=== PATIENT | female | born 1965 | race Caucasian/White ===

== ENCOUNTER 2025-06-21 07:53 | Outpatient (OUT) | payer BC, SELFPAY ==
--- OUTSIDE RECORDS SUMMARY | 2025-06-21 07:55 | XMS_ITS | Clinical Summary ---
Author Organization [facility] Address [address] [place] [id number] Care Team Providers [facility] Assistant Name Role Phone Funmilayo Thomas MD Unavailable [phone] Ashley Tomlinson Primary Care Provider Unavailabl e Allergies No known active allergies Medications MedicationSigDispense QuantityRefillsLast FilledStart DateEnd DateStatus nitroglycerin sublingual (NITROQUICK) 0.4 mg SL tablet Dissolve 0.4 mg under the tongue every 5 minutes as needed.Active metFORMIN (GLUCOPHAGE) 500 mg tablet Take 500 mg by mouth daily with breakfast.Active aspirin, enteric coated (ASPIRIN, ENTERIC COATED) 81 mg EC tablet Take 81 mg by mouth once daily.Active atorvastatin (LIPITOR) 80 mg tablet Take 80 mg by mouth once daily.Active MAGNESIUM ORAL Take by mouth once daily.Active furosemide (LASIX) 20 mg tablet Take 1 tablet by mouth twice daily. 180 tablet 3Active valsartan (DIOVAN) 80 mg tablet Take 1 tablet by mouth two times a day. 180 tablet 5Active metoprolol tartrate, short acting, (LOPRESSOR) 25 mg tablet TAKE 1 TABLET BY MOUTH TWICE A DAY 180 tablet 5Active clopidogrel (PLAVIX) 75 mg tablet Take 1 tablet by mouth once daily. 90 tablet 5Active clopidogrel (PLAVIX) 75 mg tablet Take 1 tablet by mouth once daily. 90 tablet Discontinued Active Problems ProblemNoted DateDiagnosed DateMixed hptjelyfwbeswp04/14/2022Essential dacdhrcnwfcl93/14/2022oronary artery disease involving beaver coronary artery of beaver heart without angina fziubazp81/14/2022Ischemic cardiomyopathy 2S/P drug eluting coronary stent antkthoej75/14/2022 Encounters DateTypeDepartmentCare RbncTktecfbxcvn74/28/2025Refill Cardiology [address] [place], [place] [phone] Funmilayo Thomas MD Refill Soofxau9905/14/2025Refill Cardiology [address] [place], [place] [phone] Funmilayo Thomas MD Refill Requestfrom Last 3 Months Family History Medical HistoryRelationCommentsAtrial fibrillationFatherCoronary Artery Disease FfqfxpHVOSn3Dknwv diseasePaternal AuntCoronary Artery DiseasePaternal GrandfatherCABGRelationStatusCommentsFatherPaternal AuntAlivePaternal Grandfather Social History Tobacco UseTypesPacks/DayYears UsedDateSmoking Tobacco: NeverSmokeless Tobacco: Never Tobacco Cessation:Counseling Given: Not Answered Alcohol UseStandard Drinks/WeekCommentsNot Currently0 (1 standard drink = 0.6 oz pure alcohol)Area Deprivation IndexAnswerDate RecordedNational Score (1-100), lower number is lower rjwi115501/30/2023State Score (1-10), lower number is lower aikc1893Data from: https://www.neighborhoodatlas.[facility].edu/. Last address [facility] lkmzehtnxjq[address] [facility]/30/2023CommentsNoSex and Gender InformationValueDate RecordedSex Assigned at BirthNot on fileLegal Sex Ntsugk7907/25/2021 1:41 PM ESTGender IdentityNot on fileSexual OrientationNot on file Last Filed Vital Signs Vital SignReadingTime TakenCommentsBlood Gybvgzfy804/6608 12:26 PM EDT Sbowq3968 12:26 PM SJMDymayangvpq60.1 ??C (97 ??F)12/17/2023 2:01 PM EDT Respiratory Hgxd8612 9:00 PM EDTOxygen Guihpwahtg48%12/17/2023 11:00 PM EDTInhaled Oxygen Concentration--Acpmmk94.4 kg (206 lb)02/10/2025 12:26 PM EDT Pficrk506.6 cm (5' 6 )02/10/2025 12:26 PM EDTBody Mass Index33.25002/10/2025 12:26 PM EDT Plan of Treatment DateTypeDepartmentCare Team (Latest Contact Info)Qfnrarniwdl48/09/2026 10:00 AM ESTProcedure Cardiology [address] [place] [address] S/P drug eluting coronary stent revucfeom27/09/2026 10:30 AM ESTResults [facility] [address] [place] [id number] LAB WORK08/16/2025 11:00 AM ESTOffice Visit Cardiology [address] [place] [address] S/P drug eluting coronary stent refbipwdc78/09/2026 12:15 PM ESTOffice Visit Cardiology [address] [place] [address] Funmilayo Thomas MD [address] [place] [address] S/P drug eluting coronary stent placementHealth MaintenanceDue DateLast Done CommentsAnnual PCP Team Chronic Disease Visit1984Anxiety Screening 1984Depression Ehlyxqhhk45/10/1985HIV Mxyeemuqm86/10/1985Hepatitis C Lnktlzkwu43/10/1985DTaP,Tdap,Td Vaccine (1 - Tdap)1985Hepatitis B Vaccine (1 of 3 - 19+ 3-dose series)1985CT Fsrmxumlfeax44/10/2012Cologuard (FIT-DNA)07/17/20114300Xnwmtgybszd28/10/2012Colorectal Cancer Cmsarfmvn46/10/2012 Fecal Occult Blood07/17/20116249Ynlxilutmzbng64/10/2012Pneumococcal Vaccine: 50+ (1 of 1 - PCV)2016Shingrix Vaccine (1 of 2)2016Cervical Cancer Kzwllqrux30/, 09/16/2020Mammogram Hteazurxm71/11/2024 03/18/2023, 03/18/2023, 10/06/2020ovid-19 Vaccine ( season) /07/2021, 01/04/2022, 06/14/2021, Additional history existsInfluenza Vaccine (#1)/07/2022, 05/01/2022, 04/16/2020, Additional history existsLDL Fxzblpjntpt16/21/202604/, 04/20/2024, 11/11/2023, Additional history existsDiabetes Orfagoekt40/09/641026/03/2025, 12/14/2024, 10/26/2024, Additional history existsLipid Cepwojdne94/, 04/20/2024, 11/11/2023, Additional history existsRSV Vaccine (1 - 1-dose 75+ series) 2041 Goals GoalPatient Goal TypeAssociated ProblemsRecent ProgressPatient-Stated?Author Blood Pressure < 130/80 Blood Rymudeju452/66(02/10/2025 12:26 PM EDT)Caren Rivero Procedures Procedure NamePriorityDate/TimeAssociated DiagnosisCommentsBASIC METABOLIC PANEL STAT12/17/2023 2:07 PM EDT LIPID PANEL, DKXQOQPKiviiaf87/06/2024 2:16 PM EDT S/P drug eluting coronary stent placement S/P carotid endarterectomy Atherosclerosis of beaver artery of other extremity with intermittent claudication (HCC) Controlled type 2 diabetes mellitus without complication, without long-term current use of insulin (HCC) Essential hypertension Ischemic cardiomyopathy from Last 3 Months or Most Recently Relevant to Health Maintenance Results * (ABNORMAL) BASIC METABOLIC PANEL (12/17/2023 2:07 PM EDT)ComponentValueRef RangeTest MethodAnalysis TimePerformed AtPathologist TnbultqhqYwovwja978(H)74 - 99 mg/dL12/17/2023 2:43 PM [facility] LABComment: The [place] Diabetes Association (ADA) provides guidance for cutoff values for fasting glucose andrandom glucose. The ADA defines fasting as no caloric intake for at least 8 hours. Fasting plasma glucose results between 100 to 125 mg/dL indicate increased risk for diabetes (prediabetes). Fasting plasma glucose results greater than or equal to 126 mg/dL meet the criteria for diagnosis of diabetes. In the absence of unequivocal hyperglycemia, results should be confirmed by repeat testing. In a patient with classic symptoms of hyperglycemia or hyperglycemic crisis, random plasma glucose results greater than or equal to 200 mg/dL meet the criteria for diagnosis of diabetes. Reference: Standards of Medical Care in Diabetes 2016, [place] Diabetes Association. Diabetes Care. 2016.39(Suppl 1). ADS773 - 21 mg/dL12/17/2023 2:43 PM [facility] Creatinine0.680.58 - 0.96 mg/dL12/17/2023 2:43 PM [facility] WOAEkhfsd086400 - 144 mmol/L12/17/2023 2:43 PM [facility] LABPotassium4.53.7 - 5.1 mmol/L12/17/2023 2:43 PM [facility] FYEOzicpmcb79498 - 107 mmol/L12/17/2023 2:43 PM [facility] LKBBF85083 - 30 mmol/L12/17/2023 2:43 PM [facility] LABAnion Avs906 - 15 mmol/L12/17/2023 2:43 PM [facility] LABCalcium, Total9.68.5 - 10.2 mg/dL12/17/2023 2:43 PM [facility] LABEstimated Glomerular Filtration Oajm156>=60 mL/min/1.73m 12/17/2023 2:43 PM [facility] LABComment:Estimated Glomerular Filtration Rate (eGFR) is calculated using the 2020 CKD-EPI creatinine equation. This equation utilizes serum creatinine, sex, and age as parameters. The creatinine assay has traceable calibration to isotope dilution- mass spectrometry. Refer to KDIGO guidelines for clinical interpretation. In patients with unstable renal function, e.g. those with acute kidney injury, the eGFRmay not accurately reflect actual GFR.Specimen (Source)Anatomical Location / LateralityCollection Method / VolumeCollection TimeReceived TimeBloodBLOOD SPECIMEN / UnknownVenipuncture / Xpistha3812/17/2023 2:07 PM EDT12/17/2023 2:17 PM EDT Narrative Authorizing ProviderResult TypeResult StatusKhalefaisal Thomas MDLABORATORYFinal ResultPerforming OrganizationAddressCity/State/ZIP CodePhone Number [facility] [address] [facility] [address] [place] [address], * LIPID PANEL BASIC (11/11/2023 2:16 PM EDT)ComponentValueRef RangeTest Method Analysis TimePerformed AtPathologist SignatureCholesterol, Utyif233<200 mg/dL 11/11/2023 10:52 PM [facility] LABComment: <200 mg/dL, Desirable 200-239 mg/dL, Borderline high >239 mg/dL, High Rtknjlssqeil067<150 mg/dL11/11/2023 10:52 PM [facility] Comment: <150 mg/dL, Normal 150-199 mg/dL, Borderline high 200-499 mg/dL, High >499 mg/dL, Very high HDL Pklshiciozh87>39 mg/dL11/11/2023 10:52 PM [facility] LABComment: 40-59 mg/dL, Acceptable >59 mg/dL, High: Negative risk factor for coronary heart disease <40 mg/dL, Low: Positive risk factor for coronary heart disease Non HDL Qvmjyboemez079<130 mg/dL11/11/2023 10:52 PM [facility] LABComment: <130 mg/dL, Optimal 130-159 mg/dL, Near optimal/above optimal 160-189 mg/dL, Borderline high 190-219 mg/dL, High >219 mg/dL, Very high Secondary prevention optimal non HDL Cholesterol levels are recommended to be <100 mg/dL Fasting Eolm67wjg29/06/2024 10:52 PM [facility] LABVLDL Jwzczxwfrkr73<30 mg/dL11/11/2023 10:52 PM [facility] TC:HDL Ratio2.89<5.10011/11/2023 10:52 PM [facility] LABLDL Cholesterol, Vdehxoboao45<100 mg/dL11/11/2023 10:52 PM [facility] LABComment: <100 mg/dL, Optimal 100-129 mg/dL, Near optimal/above optimal 130-159 mg/dL, Borderline high 160-189 mg/dL, High >189 mg/dL, Very high Secondary prevention optimal LDL Cholesterol levels are recommended to be < 70 mg/dL LDL:HDL Ratio1.47<2.54011/11/2023 10:52 PM [facility] Comment: Reference: 1. National Cholesterol Education Program ATP III Guideline At-A-Glance Quick Desk Reference: National Heart, Lung, and Blood [place]. National Institutes of Health. 2001: NIH Publication No. 01-3305. 2. An International Atherosclerosis Society position paper: global recommendations for the management of dyslipidemia: executive summary, Atherosclerosis. 2014: 232(2):410-413. Specimen (Source)Anatomical Location / LateralityCollection Method / Volume Collection TimeReceived TimeBloodBLOOD SPECIMEN / UnknownVenipuncture / Unknown 11/11/2023 2:16 PM EDT11/11/2023 2:16 PM EDT Narrative Authorizing ProviderResult TypeResult StatusFunmilayo Thomas MDLABORATORYFinal ResultPerforming OrganizationAddressCity/State/ZIP CodePhone Number [facility] [address] [place] [address], from Last 3 Months or Most Recently Relevant to Health Maintenance Insurance MemberSubscriberPlan / Payer (Effective 2022-Present)Name:Angela Gamez Relation to Subscriber:SelfName:Angela Gamez Payer ID:[id number] (NAIC) Type:PPO Address: [place] [id number] [place] [id number] Care Teams Team MemberRelationshipSpecialtyStart DateEnd Date Ashley Tomlinson [address] [place] [address] [facility] - [facility]21 Funmilayo Thomas MD [address] [place] [address] Primary Staff PhysicianCardiology08/21/21
--- OUTSIDE RECORDS SUMMARY | 2025-06-21 07:55 | XMS_ITS | Clinical Summary ---
Author Organization [facility] Address [address], [address] [place] [address] Care Team Providers Care Facility Supervisor Name Role Phone Ashley Pimentel FIRST AID DIRECTOR - HOOK AND EYE SEWING MACHINE OPERATOR Primary Care Prov ider Allergies No known active allergies Medications MedicationSigDispense QuantityRefillsLast FilledStart DateEnd DateStatus aspirin 81 MG chewable tablet Take 1 tablet by mouth daily 30 tablet ctive nitroGLYCERIN (NITROSTAT) 0.4 MG SL tablet up to max of 3 total doses. If no relief after 1 dose, call 911. 25 tablet ctive Additional Information Patient not taking.Reported on 05/03/2025 blood glucose monitor strips Test 4 times a day ( w/ meals and at bedtime) & as needed for symptoms of irregular blood glucose. Dispense sufficient amount for indicated testing frequency plus additional to accommodate PRN testing needs. 100 strip 09/20/2020ctive Blood Glucose Monitoring Suppl (FREESTYLE FREEDOM) KIT 1 Device by Does not apply route daily 1 kit 09/20/2020ctive metoprolol tartrate (LOPRESSOR) 25 MG tablet Take 0.5 tablets by mouth 2 times daily 60 tablet ctive valsartan (DIOVAN) 80 MG tablet Take 1 tablet by mouth dailyActive clopidogrel (PLAVIX) 75 MG tablet Take 1 tablet by mouth daily12/09/2023ctive furosemide (LASIX) 20 MG tablet Indications:CHF (congestive heart failure), NYHA class I, acute on chronic, combined (HCC)TAKE 1 TABLET BY MOUTH EVERY MORNING AND TAKE 1 TABLET EVERY EVENING 180 tablet 5Active atorvastatin (LIPITOR) 80 MG tablet TAKE 1 TABLET BY MOUTH EVERY DAY 90 tablet 5Active metFORMIN (GLUCOPHAGE) 1000 MG tablet TAKE 1 TABLET BY MOUTH TWICE A DAY WITH FOOD 180 tablet 5Active metFORMIN (GLUCOPHAGE) 1000 MG tablet TAKE 1 TABLET BY MOUTH TWICE A DAY WITH MEALS 180 tablet Discontinued Active Problems ProblemNoted DateDiagnosed DateMixed mdhyhnhwkmvywx87/14/2022TEMI (ST elevation myocardial infarction)06/29/2021Type 2 diabetes mellitus without complication, without long-term current use of mkzmwhb7901/16/2021/P carotid endarterectomy 12/09/2020Iron hxfwxjbzkbpie25/14/2021Iron deficiency anemia secondary to inadequate dietary iron kakwzu3610/19/2020arotid stenosis, asymptomatic, snbsyowyg69/07/2021AD, multiple oxjbqw3109/14/2020HF (congestive heart failure), NYHA class I, acute on chronic, /08/2021Obesity (BMI 35.0-39.9 without comorbidity)09/12/2020Uncontrolled pystkkqqxume01/08/2021hortness of breath Abnormal ECGAcute heart failure with preserved ejection fraction (HFpEF)Unstable anginaPAD (peripheral artery disease) Encounters DateTypeDepartmentCare JplaXckkqsetpyz91/15/2025Refill Antelmo Canela MD [address] [place] [address] [place] [address] Ashley Pimentel APRN - CNP Medication Urafhg2305/03/2025 8:30 AM EDTOffice Visit Antelmo Canela MD [address] [place] [address] Ashley Pimentel APRN - CNP Wellness examination (Primary Dx); Mixed hyperlipidemia; Type 2 diabetes mellitus without complication, without long-term current use of insulin (HCC); PAD (peripheral artery disease); Iron malabsorption; CHF (congestive heart failure), NYHA class I, acute on chronic, combined (HCC); Carotid stenosis, asymptomatic, bilateral; Encounter for screening mammogram for malignant neoplasm of fqaetu9705/01/2025 9:45 AM EDT - 05/01/2025 11:59 PM EDTHospital Encounter [facility] [address] [place], [place] [id number] Type 2 diabetes mellitus without complication, without long-term current use of insulin (HCC) Discharge Disposition: Home or Self Carefrom Last 3 Months Immunizations ImmunizationAdministration DatesNext DueCOVID-19, Inactive, MODERNA BLUE border, Primary or Immunocompromised, (age 12y+)2COVID-19, Inactive, PFIZER PURPLE top, DILUTE for use, (age 12 y+)07/20/2020,06/29/2020Influenza A (H1N1- 09) Vaccine PF IM05/05/2009Influenza Virus Nhtxdso1104/16/2020Influenza, FLUBLOK, (age 18 y+), Quadv PF, 0.5mL04/07/2023,05/01/2022 Family History Medical HistoryRelationNameCommentsDiabetesBrother 1DiabetesBrother 2No Known ProblemsBrother 3DiabetesFatherHeart DiseaseFatherHigh Blood PressureFatherHigh CholesterolFatherHigh CholesterolMotherHeart DiseasePaternal GrandfatherHeart DiseaseSister 1No Known ProblemsSister 2No Known ProblemsSister 3No Known ProblemsSister 4CancerNeg HxHeart AttackNeg HxKidney DiseaseNeg HxStrokeNeg Hx RelationNameStatusCommentsBrother 1AliveBrother 2AliveBrother 3AliveFatherAlive MotherAlivePaternal GrandfatherSister 1AliveSister 2AliveSister 3AliveSister 4 Alive Social History Tobacco UseTypesPacks/DayYears UsedDateSmoking Tobacco: NeverSmokeless Tobacco: Never Tobacco Cessation:Counseling Given: Not Answered Alcohol UseStandard Drinks/WeekCommentsNever0 (1 standard drink = 0.6 oz pure alcohol)[facility] UtilitiesAnswerDate RecordedIn the past 12 months has the [employer], gas, oil, or water [employer] threatened to shut off services in your home?No 04/27/2024Humiliation, Afraid, Rape, and Kick questionnaireAnswerDate Recorded Within the last year, have you been afraid of your partner or ex-partner?No 04/27/2024Within the last year, have you been humiliated or emotionally abused in other ways by your partner or ex-partner?No04/27/2024Within the last year, have you been kicked, hit, slapped, or otherwise physically hurt by your partner or ex-partner?No04/27/2024Within the last year, have you been raped or forced to have any kind of sexual activity by your partner or ex-partner?No04/27/2024 Social Connection and Isolation PanelAnswerDate RecordedIn a typical week, how many times do you talk on the phone with family, friends, or neighbors?More than three times a week04/27/2024How often do you get together with friends or relatives?Twice a week04/27/2024How often do you attend anabaptist or yarsani services?More than 4 times per year04/27/2024o you belong to any clubs or organizations such as anabaptist groups, unions, fraternal or athletic groups, or school groups?No04/27/2024How often do you attend meetings of the clubs or organizations you belong to?Never04/27/2024re you , , , , never , or living with a partner?Aojuzoa3904/27/2024UDIT-C AnswerDate RecordedQ1: How often do you have a drink containing alcohol?Never 04/27/2024Q2: How many drinks containing alcohol do you have on a typical day when you are drinking?Patient does not drink04/27/2024Q3: How often do you have six or more drinks on one occasion?Never04/27/2024Overall Financial Resource Strain (CARDIA)AnswerDate RecordedHow hard is it for you to pay for the very basics like food, housing, medical care, and heating?Not hard at all04/27/2024 PHQ-2AnswerDate RecordedPHQ-9 Total Zefeq872Finriverton [facility] [place] [facility] Occup[facility] - Occupational Stress QuestionnaireAnswerDate RecordedDo you feel stress - tense, restless, nervous, or anxious, or unable to sleep at night because yourmind is troubled all the time - these days?Only a vtahyl5804/27/2024 Exercise Vital SignAnswerDate RecordedOn average, how many days per week do you engage in moderate to strenuous exercise (like a brisk walk)?7 days04/27/2024On average, how many minutes do you engage in exercise at this level?20 min 04/27/2024Hunger Vital SignAnswerDate RecordedWithin the past 12 months, you worried that your food would run out before you got the money to buymore.Never true04/27/2024Within the past 12 months, the food you bought just didn't last and you didn't have money to get more.Never true04/27/2024RAPARE - TransportationAnswerDate RecordedIn the past 12 months, has lack of transportation kept you from medical appointments or from getting medications?No 04/27/2024In the past 12 months, has lack of transportation kept you from meetings, work, or from getting things needed for daily living?No04/27/2024 Housing Stability Vital SignAnswerDate RecordedIn the last 12 months, was there a time when you were not able to pay the mortgage or rent on time?No12/31/2022In the last 12 months, how many places have you lived?In the last 12 months, was there a time when you did not have a steady place to sleep or slept in paolielter (including now)?No12/31/2022Housing Stability Vital SignAnswerDate RecordedIn the last 12 months, was there a time when you were not able to pay the mortgage or rent on time?No04/27/2024In the past 12 months, how many times have you moved where you were living?t any time in the past 12 months, were you homeless or living in a correction (including now)?No04/27/2024 Food InsecurityAnswerDate RecordedWithin the past 12 months, you worried that your food would run out before you got the money to buymore.Within the past 12 months, the food you bought just didn't last and you didn't have money to get more.regnantCommentsNoSex and Gender InformationValue Date RecordedSex Assigned at BirthNot on fileLegal AtaMljusw33/10/2013 6:44 PM ESTGender IdentityNot on fileSexual OrientationNot on file Last Filed Vital Signs Vital SignReadingTime TakenCommentsBlood Xqtobdyr006/7205/03/2025 8:43 AM EDT Vjmjb301405/03/2025 8:43 AM AMWHlgmbfolruv38.1 ??C (98.7 ??F)03/18/2023 3:34 PM EDTRespiratory Iiyz1163 8:45 AM EDTOxygen Lnvrdjplca18%07/03/2021 3:30 PM ESTInhaled Oxygen Concentration--Auugbk99.8 kg (209 lb)05/03/2025 8:43 AM EDT Tfnqvl890.6 cm (5' 6 )05/03/2025 8:43 AM EDTBody Mass Index33.7305/03/2025 8:43 AM EDT Plan of Treatment DateTypeDepartmentCare Team (Latest Contact Info)Chgejtnzkpn25/23/2026 8:30 AM ESTOffice Visit Antelmo Canela MD [address] [place] [address] Ashley Pimentel, FIRST AID DIRECTOR - HOOK AND EYE SEWING MACHINE OPERATOR [address] [place] [address] 4 month f/uHealth MaintenanceDue DateLast DoneCommentsDiabetic retinal exam 1984DTaP/Tdap/Td vaccine (1 - Tdap)1985Hepatitis B vaccine (1 of 3 - 19+ 3-dose series)1985Pneumococcal 50+ years Vaccine (1 of 2 - PCV) 1985HPV (without or with Pap)1996FIT/FOBT: Average risk2011 Fecal-DNA (Cologuard): Average risk2011Sigmoidoscopy/CT colonography 2011Shingles vaccine (1 of 2)2016Cervical cancer knsnxn784Pap smear10/03//, 09/16/2020Flu vaccine (#1)/07/2022, 05/01/2022, 04/16/2020, Additional history existsCOVID-19 Vaccine ( season)/07/2021, 01/04/2022, 06/14/2021, Additional history exists Breast cancer xasunf26/05/2023, 10/06/2020GFR test (Diabetes, CKD 3-4, OR last GFR 15-59)/, 12/24/2022, 03/05/2022, Additional history pcaiznIttkwe46/21/202604/, 04/20/2024, 10/21/2023, Additional history existsDiabetic Alb to Cr ratio (uACR) test/03/2025, 04/30/2023, 05/14/2022, Additional history uqldgwA2M test (Diabetic or Prediabetic), 12/14/2024, 08/10/2024, Additional history existsDepression Osdgjt95, 05/03/2025Diabetic foot exam , 12/30/2023, 12/31/2022, Additional history exists Zodtqglmqqg31/13/203103/, 1Colorectal Cancer Pmyqyh7509/17/2030HIV cjofvjIrtiysmny32/04/2022Diabetes tbxddoWeyieferrlfj04/25/2025, 12/14/2024, 10/26/2024, Additional history existsHepatitis A vaccineAged OutNo longer eligible based on patient's age to complete this topicHepatitis C screen DiscontinuedHib vaccineAged OutNo longer eligible based on patient's age to complete this topicMeningococcal (ACWY) vaccineAged OutNo longer eligible based on patient's age to complete this topicMeningococcal B vaccineAged OutNo longer eligible based on patient's age to complete this topicPolio vaccineAged OutNo longer eligible based on patient's age to complete this topic Medical Devices ImplantedTypeAreaManufacturerDevice IdentifierShelf Expiration DateModel / Serial / LotPatch Vasc W0.8xl8cm Periph Bov Pericard N Pvc N Dehp Crss Implanted:Qty: 1 [facility]09/[facility] NeckBAXTER BIOSURGERY-[id number] / / [id number] IdentifierShelf Expiration DateModel / Serial / LotShunt Car Art 3x5mm L30cm Sgl Use Ext Integra Sundt Explanted:Qty: 1 on 12/09/2020 by Chase Pierce MD at [facility]: NeckINTEGCELtrakCIDebtLESS Community ROMULO-[id number] / / Procedures Procedure NamePriorityDate/TimeAssociated DiagnosisCommentsHEMOGLOBIN R4TEhcuqvg 05/01/2025 9:55 AM EDT Type 2 diabetes mellitus without complication, without long-term current use of insulin (HCC) ALBUMIN/CREATININE RATIO, NQKZHZjmupbt51/09/2025 8:39 AM EDT Type 2 diabetes mellitus without complication, without long-term current use of insulin (HCC) LIPID TKMXUCrfrtit32/21/2025 10:02 AM EDT Mixed hyperlipidemia COMPREHENSIVE METABOLIC PANEL, KVVJCRHCtwstvb35/21/2025 10:00 AM EDT Primary hypertension BELEM MAIKEL DIGITAL SCREEN DTLZDYBSYDvwyjwb03/11/2023 10:07 AM EDT Screening mammogram for breast cancer HIV CSFLRLPruoohd88/04/2022 8:58 AM EDT Encounter for screening for HIV PAP TLMRFDvhojyk27/29/2021 12:00 PM EDT HM UQWICVPXLQPAivenrk03/13/2021from Last 3 Months or Most Recently Relevant to Health Maintenance Results * (ABNORMAL) Hemoglobin A1C (05/01/2025 9:55 AM EDT)ComponentValueRef RangeTest MethodAnalysis TimePerformed AtPathologist SignatureHemoglobin A1C6.7(H)4.0 - 6.0 %05/01/2025 9:55 AM EDTMERCY LABORATORIESEstimated Avg Ffldige618gh/dL 05/01/2025 9:55 AM EDTMERCY LABORATORIESComment: The ADA and AACC recommend providing the estimated average glucose result to permit better patient understanding of their HBA1c result. Specimen (Source)Anatomical Location / LateralityCollection Method / Volume Collection TimeReceived TimeBloodBLOOD SPECIMEN / Qeflvyr4105/01/2025 9:55 AM EDT 05/01/2025 9:56 AM EDT Narrative Authorizing ProviderResult TypeResult StatusAshley Pimentel FIRST AID DIRECTOR - HOOK AND EYE SEWING MACHINE OPERATOR CHEMISTRY ORDERABLESFinal ResultPerforming OrganizationAddressCity/State/ZIP CodePhone Number [facility] [address] [place] [address] [facility] [address] [place] [address] * Albumin/Creatinine Ratio, Urine (12/14/2024 8:39 AM EDT)ComponentValueRef RangeTest MethodAnalysis TimePerformed AtPathologist SignatureAlbumin Dhoag730 - 20 mg/L12/14/2024 8:39 AM EDTMERCY LABORATORIESCreatinine, Ur80.828.0 - 217.0 mg/dL12/14/2024 8:39 AM EDTMERCY LABORATORIESComment:Reference range defined for 1st morning urineMicroalb/Road Mixer Operator. Oqnmn005.0 - 25.0 mcg/mg creat 12/14/2024 8:39 AM EDTMERCY LABORATORIESSpecimen (Source)Anatomical Location / LateralityCollection Method / VolumeCollection TimeReceived TimeUrine (Urine) 12/14/2024 8:39 AM EDT12/14/2024 8:40 AM EDT Narrative Authorizing ProviderResult TypeResult StatusAshley Pimentel FIRST AID DIRECTOR - CNPURINE ORDERABLESFinal ResultPerforming OrganizationAddressCity/State/ZIP CodePhone Number [facility] [address] [place] [address], [facility] [phone] [facility] [address] [place] [address], [facility] [phone] * (ABNORMAL) Lipid Panel (10/26/2024 10:02 AM EDT)ComponentValueRef RangeTest MethodAnalysis TimePerformed AtPathologist SignatureCholesterol, Qlegw2681 - 199 mg/dL10/26/2024 10:02 AM EDTMERCY LABORATORIESComment: Cholesterol Guidelines: <200 Desirable 200-240 ??Borderline >240 Undesirable HDL50>40 mg/dL10/26/2024 10:02 AM EDTMERCY LABORATORIESComment: HDL Guidelines: <40 Undesirable 40-59 ?Borderline >59 Desirable LDL Sesehtisknh836 - 100 mg/dL10/26/2024 10:02 AM EDTMERCY LABORATORIESComment: LDL Guidelines: <100 Desirable 100-129 ?? Near to/above Desirable 130-159 ?? Borderline >159 Undesirable Direct (measured) LDL and calculated LDL are not interchangeable tests. Chol/HDL Ratio3.504 10:02 AM EDTMERCY QSWWAOTMBVNDAphyywfqhyhcp997(H) <150 mg/dL10/26/2024 10:02 AM EDTMERCY LABORATORIESComment: Triglyceride Guidelines: <150 Desirable 150-199 ??Borderline 200-499 ??High >499 Very high Based on AHA Guidelines for fasting triglyceride, April 2012. VLDL33(H)1 - 30 mg/dL10/26/2024 10:02 AM EDTMERCY LABORATORIESSpecimen (Source) Anatomical Location / LateralityCollection Method / VolumeCollection Time Received TimeBloodBLOOD SPECIMEN / Mvyugcd3510/26/2024 10:02 AM EDT10/26/2024 10:03 AM EDT Narrative Authorizing ProviderResult TypeResult StatusKatmehul Pimentel FIRST AID DIRECTOR - HOOK AND EYE SEWING MACHINE OPERATOR CHEMISTRY ORDERABLESFinal ResultPerforming OrganizationAddressCity/State/ZIP CodePhone Number [facility] [address] [place] [address], [facility] [phone] [address], [facility] [phone] * (ABNORMAL) Comprehensive Metabolic Panel, Fasting (10/26/2024 10:00 AM EDT) ComponentValueRef RangeTest MethodAnalysis TimePerformed AtPathologist VfiataofyXwlmde834189 - 145 mmol/L10/26/2024 10:00 AM [facility] LABPotassium4.13.7 - 5.3 mmol/L10/26/2024 10:00 AM [facility] LRJZguwhfuk85458 - 107 mmol/L10/26/2024 10:00 AM [facility] KHOXK71443 - 31 mmol/L10/26/2024 10:00 AM [facility] LABAnion Bip060 - 16 mmol/L10/26/2024 10:00 AM [facility] LABGlucose, Zbywafo877(H)74 - 99 mg/dL10/26/2024 10:00 AM [facility] EDYWVX17(H)6 - 20 mg/dL10/26/2024 10:00 AM [facility] LABCreatinine0.80.50 - 0.90 mg/dL10/26/2024 10:00 AM [facility] LABEst, Glom Filt Rate80>60 mL/min/1.98z12410/26/2024 10:00 AM [facility] LABComment: ? These results are not intended for use in patients <18 years of age. ? eGFR results are calculated without a race factor using the 2020 CKD-EPI equation. Careful clinical correlation is recommended, particularly when comparing to results calculated using previous equations. The CKD-EPI equation is less accurate in patients with extremes of muscle mass, extra-renal metabolism of creatine, excessive creatine ingestion, or following therapy that affects renal tubular secretion. BUN/Creatinine Ratio31(H) - 10:00 AM [facility] LABCalcium9.58.6 - 10.4 mg/dL10/26/2024 10:00 AM [facility] LABTotal Protein7.06.6 - 8.7 g/dL10/26/2024 10:00 AM [facility] LABAlbumin4.33.5 - 5.2 g/dL10/26/2024 10:00 AM [facility] LABAlbumin/Globulin Ratio1.61.0 - 2.504/ 10:00 AM EDT [facility] LABTotal Bilirubin0.50.00 - 1.20 mg/dL10/26/2024 10:00 AM [facility] LABAlkaline Urajyujaewl6686 - 104 U/L 10/26/2024 10:00 AM [facility] SICILQ2719 - 35 U/L 10/26/2024 10:00 AM [facility] BKALOE7320 - 35 U/L 10/26/2024 10:00 AM [facility] LABSpecimen (Source) Anatomical Location / LateralityCollection Method / VolumeCollection Time Received TimeBloodBLOOD SPECIMEN / Xaeuhrj4010/26/2024 10:00 AM EDT10/26/2024 10:01 AM EDT Narrative Authorizing ProviderResult TypeResult StatusAshley Pimentel FIRST AID DIRECTOR - HOOK AND EYE SEWING MACHINE OPERATOR CHEMISTRY ORDERABLESFinal ResultPerforming OrganizationAddressCity/State/ZIP CodePhone Number [facility] [address] [phone] * BELEM MAIKEL DIGITAL SCREEN BILATERAL (03/18/2023 10:07 AM EDT)Anatomical Region LateralityModalityBreastBilateralMammographySpecimen (Source)Anatomical Location / LateralityCollection Method / VolumeCollection TimeReceived Time 03/18/2023 10:09 AM EDT Impressions 03/18/2023 10:15 AM EDT No mammographic evidence of malignancy BIRADS: BIRADS - CATEGORY 1 Negative. ??Normal interval follow-up is recommended in 12 months. OVERALL ASSESSMENT - NEGATIVE A letter of notification will be sent to the patient regarding the results. The [employer] recommends annual mammograms for women 40 years and older. Narrative 03/18/2023 10:15 AM EDT EXAMINATION: SCREENING DIGITAL BILATERAL MAMMOGRAM WITH TOMOSYNTHESIS, 03/18/2023 TECHNIQUE: Screening mammography was performed with tomosynthesis including MLO and CC views of the bilateral breasts. Computer aided detection was used for the interpretation of this exam. COMPARISON: October 07, 2019 HISTORY: Screening. FINDINGS: Breasts are composed of scattered fibroglandular density. ??There is no dominant mass, architectural distortion or concerning grouping of microcalcification in either breast. Authorizing ProviderResult TypeResult StatusAshley Luzdalila Pimentel FIRST AID DIRECTOR - CNPIMG MAMMOGRAPHY ORDERABLESFinal Result * HIV Screen (10/09/2021 8:58 AM EDT)ComponentValueRef RangeTest MethodAnalysis TimePerformed AtPathologist SignatureHIV Ag/AwZMCQYFGBIQEDWBLQELMDFA84/04/2022 8:58 AM EDTMERCY LABORATORIESComment: No laboratory evidence of HIV infection. ??If acute HIV infection is suspected, consider testing for HIV-1 RNA. Specimen (Source)Anatomical Location / LateralityCollection Method / Volume Collection TimeReceived TimeBLOOD SPECIMEN / Fddresp0710/09/2021 8:58 AM EDT 10/09/2021 8:59 AM EDT Narrative Authorizing ProviderResult TypeResult StatusAshley Pimentel FIRST AID DIRECTOR - HOOK AND EYE SEWING MACHINE OPERATOR IMMUNOLOGY ORDERABLESFinal ResultPerforming OrganizationAddressCity/State/ZIP CodePhone Number [facility] [address] [place] [address], [facility] [phone] [facility] [address] [place], [place] [address] [phone] * PAP SMEAR (10/03/2020 12:00 PM EDT)ComponentValueRef RangeTest MethodAnalysis TimePerformed AtPathologist SignatureCytology Thin PrepSEE BELOW10/05/2020 10:56 AM EDTMERCY LABORATORIESComment: INTERPRETATION Cervical-Endocervical material, (Thin prep vial, Imaging-assisted review): Specimen Adequacy: ?Satisfactory for evaluation. ?- Endocervical/transformation zone component present. ?- Partially obscuring blood. Descriptive Diagnosis: ?ATYPICAL SQUAMOUS CELLS OF UNDETERMINED SIGNIFICANCE (ASC-US). Case signed out at [facility], [address] [place] [id number] Comments: ?High Risk HPV testing was ordered. Scoop Filler: ?? MICHAEL Mccauley M.D. ?Case signed out at [facility] Electronically Signed Out 10/05/2020 Procedure/Addendum HPV Procedure Report ? Date Ordered: ? 10/04/2020 ? Status: Signed Out ?Date Complete: ? 10/04/2020 ? By: Ruth Moon CT(ASCP) ?Date Reported: ? 10/05/2020 INTERPRETATION Soila HPV DNA High Risk HPV Sample ? Thin Prep ?(Ref Range) HPV Type 16 ? Not Detected ?(Not Detected) HPV Type 18 ? Not Detected ?(Not Detected) Other High Risk HPV ? Not Detected ?(Not Detected) ??This test amplifies and detects DNA of 14 high-risk HPV types associated with cervical cancer and its precursor lesions (HPV types 16, 18, 31, 33, 35, 39, 45, 51, 52, 56, 58, 59, 66, and 68). Sensitivity may be affected by specimen collection methods, stage of infection, and the presence of interfering substances. ??Results should be interpreted in conjunction with other available laboratory and clinical data. ??A negative high-risk HPV result does not exclude the possibility of future cytologic HSIL or underlying CIN2-3 or cancer. This test is intended for medical purposes only and is not valid for the evaluation of suspected sexual abuse or for other forensic purposes. Clinical History: Repeat pap: due to unsatisfactory cells Z12.4 Encounter for screening for malignant neoplasm of cervix Co-Test: ??ThinPrep Pap with high risk HPV testing Source of Specimen: 1: Cervical-Endocervical material, (Thin prep vial, Imaging-assisted review) Specimen was processed and screened at [facility], [address] [place], [place] [id number] ?? Patient Name: YANIRA GAMEZ MR#: [id number] Specimen (Source)Anatomical Location / LateralityCollection Method / Volume Collection TimeReceived Time10/03/2020 12:00 PM EDT10/03/2020 2:53 PM EDT Narrative Authorizing ProviderResult TypeResult StatusVeronica Stubbs MD PATHOLOGY/CYTOLOGY ORDERABLESEdited Result - FinalPerforming OrganizationAddress City/State/ZIP CodePhone Number [facility] [address] [place] [address], [facility] [phone] [facility] [address] [place] [address], [facility] [phone] * HM COLONOSCOPY (09/17/2020) Narrative Authorizing ProviderResult TypeResult StatusHistorical Provider MDHEALTH MAINTENANCEFinal Result from Last 3 Months or Most Recently Relevant to Health Maintenance Insurance Advance Directives * Full Code (Latest Code Status on File) Date ActivatedDate YpsliphcqmkAaiamgse59/24/2021 12:57 AM07/03/2021 10:15 PM * Full Code Date ActivatedDate IsvyzqepahiAmbwdjqw21/23/2021 9:50 PM06/30/2021 12:57 AM * Full Code Date ActivatedDate InactivatedComments12/09/2020 11:28 AM12/10/2020 10:23 PM * Full Code Date ActivatedDate InactivatedComments12/09/2020 8:12 AM12/09/2020 11:28 AM * Full Code Date ActivatedDate InactivatedComments09/19/2020 2:59 PM09/20/2020 6:14 PM NameRelationshipHealthcare Agent RelationshipCommunicationRichsteven Curiel Primary Decision Maker* Care Teams Team MemberRelationshipSpecialtyStart DateEnd Date Ashley Pimentel, FIORELLA - [employer] M[employer]INE OPERATOR [address] [place] [address] [place] [address] PCP - GeneralNurse Practitioner, [facility]09/28/20
--- NOTE | 2025-06-21 07:58 | MM_ITS ---
Patient Name: YANIRA NUÑEZ MR#: [id number] : 1965 Exam Date: 06/21/2025 Ordering Doctor: CORINNA BOWSER RADIOLOGY REPORT PROCEDURE: MM TOMOSYNTHESIS SCREENING BI COMPARISON: MM TOMOSYNTHESIS SCREENING BI, 03/18/2023. MM TOMOSYNTHESIS SCREENING BI, 10/06/2020. INDICATIONS: Screening Calculator Name NCI Breast Cancer Risk Assessment Tool 5 Year Breast Cancer Risk 1.30% Lifetime Breast Cancer Risk 7.60% Personal Breast Cancer No Personal Ovarian Cancer No Treatments None Family Cancers None LOCATION: [facility] BREAST COMPOSITION: There are scattered areas of fibroglandular density. FINDINGS: RIGHT BREAST: No significant suspicious finding. LEFT BREAST: No significant suspicious finding. DIAGNOSTIC CATEGORY 1--NEGATIVE. RECOMMENDATIONS: ROUTINE MAMMOGRAM AND CLINICAL EVALUATION IN 12 MONTHS. Dictated by: Perfecto Mathew DO on 06/21/2025 at 13:29 Approved by: Perfecto Mathew DO on 06/21/2025 at 13:32
== END 2025-06-21 07:54 | disposition home or self-care (01) ==
LOC: MAMMO 07:53
PROVIDERS: Visit Provider Nurse Practitioner Family
DX: Z12.31 Encounter for screening mammogram for malignant neoplasm of breast (principal)
CPT/HCPCS: 77063; 77067